=== PATIENT | male | born 1955 | race Caucasian/White ===

== ENCOUNTER 2025-05-31 15:22 | Emergency (ER) | payer MEDICARE, BC ==
[~2025-05-31] VITALS: Ht 175.3 cm; Wt 79.4 kg
[2025-05-31 16:04] VITALS: BP 163/93
[2025-05-31] MEDS ORDERED: OXYCODONE/APAP 5-325 MG TABLET ONE (17:06)
[2025-05-31] MEDS: OXYCODONE/APAP 5-325 MG TABLET PO ONE (17:09)
[2025-05-31 17:26] LABS: *BILIRUBIN,URIN NEGATIVE (NEGATIVE); *CLARITY,URINE CLEAR (CLEAR); *COLOR,URINE YELLOW (YELLOW); *KETONES,URINE NEGATIVE (NEGATIVE); *PROTEIN,URINE NEGATIVE (NEGATIVE); *UROBILINOGEN,URINE 0.2 E.U./dl (NORMAL); LEUKOCYTE ESTERASE ,URINE NEGATIVE (NEGATIVE); NITRITE, URINE NEGATIVE (NEGATIVE); UGLUCOSE NEGATIVE (NEGATIVE)
[2025-05-31 17:39] LABS: *BLOOD, URINE TRACE (NEGATIVE)
[2025-05-31 17:50] LABS: SQUAMOUS EPITHELIAL CELL,UR FEW /HPF (NONE SEEN)
[2025-05-31] MEDS ORDERED: OXYC-128 PO ×2 (18:40→18:42)
[2025-05-31 21:34] VITALS: BP 150/89; O2SAT 99
== END 2025-05-31 19:37 | disposition home or self-care (01) ==
LOC: ER 15:22
DX: T14.8XXA Other injury of unspecified body region, initial encounter (principal); J20.8 Acute bronchitis due to other specified organisms; G89.29 Other chronic pain; B97.89 Other viral agents as the cause of diseases classified elsewhere; K57.30 Diverticulosis of large intestine without perforation or abscess without bleeding; Z88.6 Allergy status to analgesic agent; Y92.89 Other specified places as the place of occurrence of the external cause
CPT/HCPCS: 76770; A4606; A4663